=== PATIENT | male | born 1975 | race Caucasian/White ===

== ENCOUNTER 2016-06-18 22:57 | Emergency (ER) | payer SELFPAY ==
[~2016-06-18] VITALS: Ht 185.4 cm; Wt 88.5 kg
[2016-06-18 23:04] VITALS: BP 137/92
[2016-06-18 23:31] LABS: Basophils # (auto) 0 uL; Basophils % (auto) 0.3 % (0.0-2.0); Eosinophils # (auto) 0.2 uL; Eosinophils % (auto) 3.3 % (0.0-7.0); Hematocrit 47.9 % (41.0-53.0); Hemoglobin 16.5 g/dL (13.5-17.5); Lymphocytes # (auto) 2.6 uL; Lymphocytes % (auto) 35.6 % (10.0-50.0); Mean Corpuscular Hemoglobin 30.9 pg (28.0-32.0); Mean Corpuscular Hgb Conc. 34.4 g/dL (32.0-36.0); Mean Corpuscular Volume 89.9 fL (80.0-100.0); Mean Platelet Volume 7.3 fL (7.4-10.4); Monocytes # (auto) 0.5 uL; Monocytes % (auto) 6.6 % (0.0-12.0); Neutrophils # (auto) 3.9 uL; Neutrophils % (auto) 54.2 % (37.0-80.0); Platelet Count (auto) 342 10^3/uL (140-450); Red Cell Distribution Width 13.3 % (11.6-16.0); White Blood Cell 7.3 10^3/uL (4.4-10.8)
[2016-06-18 23:49] LABS: Albumin 4.1 g/dL (3.4-5.0); BUN/Creatinine Ratio 10.9; Calcium 8.4 mg/dL (8.5-10.1); Potassium 4.1 mmol/L (3.5-5.1)
[2016-06-18 23:50] LABS: Salicylate < 1.7 mg/dL (2.8-20.0)
[2016-06-18 23:51] LABS: Bilirubin, Total 0.3 mg/dL (0.2-1.0); Total Protein 7.8 g/dL (6.4-8.2)
[2016-06-18 23:53] LABS: Acetaminophen < 2.0 ug/mL (10-30)
== END 2016-06-18 23:30 | disposition left against medical advice (07) ==
LOC: ER 23:09
DX: R45.851 Suicidal ideations (principal); Z53.21 Procedure and treatment not carried out due to patient leaving prior to being seen by health care provider
CPT/HCPCS: 36415; 80053; 80329; 85025